=== PATIENT | male | born 1975 | race Caucasian/White ===

== ENCOUNTER 2023-11-05 14:27 | Emergency (ER) | payer SELFPAY ==
[~2023-11-05] VITALS: Ht 175.3 cm; Wt 90.0 kg
[2023-11-05 14:42] VITALS: O2SAT 96
[2023-11-05] MEDS: BACITRACIN ZINC OINT UDPKT TOP ONE (15:30)
[2023-11-05] MEDS: LIDOCAINE HCL/PF 1% 10 MG/ML 5ML VIAL INFIL ONE (15:30)
[2023-11-05] MEDS ORDERED: BO1 TP (15:37)
[2023-11-05] MEDS: TETANUS, DIPHTHERIA, PERTUSSIS VAC/PF 0.5ML (>10YR OLD) IM ONE (16:38)
[2023-11-05 16:41] VITALS: BP 124/82; PULSE 98; RESP 20; TEMP 98.4
== END 2023-11-05 16:42 | disposition home or self-care (01) ==
LOC: ER 14:27
DX: S51.811A Laceration without foreign body of right forearm, initial encounter (principal); X58.XXXA Exposure to other specified factors, initial encounter; Y93.89 Activity, other specified; Y92.89 Other specified places as the place of occurrence of the external cause; Y99.8 Other external cause status
CPT/HCPCS: 90715; 12002; 90471; 99283; J3490; Z7610 ×2